=== PATIENT | female | born 1975 | race Caucasian/White ===

== ENCOUNTER 2017-07-30 14:09 | Emergency (ER) | payer MEDICAID, OTHER ==
[~2017-07-30] VITALS: Ht 167.6 cm; Wt 118.9 kg
[~2017-07-30 14:09] MED LIST: ALBU8.5H3 IH; CLON0.5T PO; CYCL-309 PO; HYDR-4031 PO; INSU100C4 SQ; INSU100C6 SQ; LAMO25TA66 PO; LISI10TA7 PO; LITH300C3 PO; LITH300CRT PO; LURA40 PO; OMEP20 PO; PHENY100 PO; PREM625 PO; PROM25 PO; RISP0.5T61 PO; SITA100 PO
[2017-07-30 14:28] LABS: GLUCOSE,POINT OF CARE 191 MG/DL (70-110)
[2017-07-30] MEDS ORDERED: IBUP-2070 PO (14:30)
[2017-07-30] MEDS ORDERED: PRAZ1 PO (14:30)
[2017-07-30] MEDS ORDERED: ZONI100 PO (14:30)
[2017-07-30] MEDS ORDERED: VENL-68 PO (14:30)
[2017-07-30] MEDS ORDERED: VIST50 PO (14:30)
[2017-07-30] MEDS ORDERED: TRAM50TA4 PO (14:30)
[2017-07-30] MEDS ORDERED: TRAZ-147 PO (14:30)
[2017-07-30] MEDS ORDERED: RISP2 PO (15:14)
[2017-07-30] MEDS ORDERED: LORazepam 1 MG TABLET PO ONE (15:15)
[2017-07-30 16:50] VITALS: BP 123/84
== END 2017-07-30 17:26 | disposition home or self-care (01) ==
LOC: EMS 14:11
DX: G40.909 Epilepsy, unspecified, not intractable, without status epilepticus (principal); E11.9 Type 2 diabetes mellitus without complications; I10 Essential (primary) hypertension; F31.9 Bipolar disorder, unspecified; K21.9 Gastro-esophageal reflux disease without esophagitis; E78.00 Pure hypercholesterolemia, unspecified; G43.909 Migraine, unspecified, not intractable, without status migrainosus; Z91.19 Patient's noncompliance with other medical treatment and regimen; Z88.5 Allergy status to narcotic agent; Z88.0 Allergy status to penicillin; Z79.4 Long term (current) use of insulin
CPT/HCPCS: 82962; 99285

== ENCOUNTER 2017-10-20 15:06 | Emergency (ER) | payer MEDICAID, OTHER ==
[~2017-10-20] VITALS: Ht 167.6 cm; Wt 114.1 kg
[~2017-10-20 15:06] MED LIST changes: -CLON0.5T PO; -HYDR-4031 PO; +HYDR50CA10 PO; +IBUP-2070 PO; -LAMO25TA66 PO; -LISI10TA7 PO; -LITH300C3 PO; -LITH300CRT PO; -LURA40 PO; -PHENY100 PO; +PRAZ1 PO; -PREM625 PO; -PROM25 PO; -RISP0.5T61 PO; +RISP2 PO; -SITA100 PO; +TRAM50TA4 PO; +TRAZ-147 PO; +VENL-68 PO; +ZONI100 PO
[2017-10-20 15:42] LABS: GLUCOSE,POINT OF CARE 134 MG/DL (70-110)
[2017-10-20] MEDS ORDERED: ESCI20TA PO (16:37)
[2017-10-20] MEDS ORDERED: QUET100T PO (16:37)
[2017-10-20 16:46] VITALS: BP 121/76
== END 2017-10-20 17:21 | disposition home or self-care (01) ==
LOC: EMS 15:08
DX: Z76.0 Encounter for issue of repeat prescription (principal); E11.9 Type 2 diabetes mellitus without complications; K21.9 Gastro-esophageal reflux disease without esophagitis; E78.00 Pure hypercholesterolemia, unspecified; I10 Essential (primary) hypertension; G43.909 Migraine, unspecified, not intractable, without status migrainosus; Z88.0 Allergy status to penicillin; Z88.5 Allergy status to narcotic agent; Z79.4 Long term (current) use of insulin
CPT/HCPCS: 99283

== ENCOUNTER 2017-12-19 06:22 | Emergency (ER) | payer OTHER ==
[~2017-12-19] VITALS: Ht 167.6 cm; Wt 111.8 kg
[~2017-12-19 06:22] MED LIST changes: +ESCI20TA PO; -HYDR50CA10 PO; +QUET100T PO; -RISP2 PO; -TRAM50TA4 PO; -TRAZ-147 PO; -VENL-68 PO
[2017-12-19 06:38] LABS: GLUCOSE,POINT OF CARE 193 MG/DL (70-110)
[2017-12-19 07:03] LABS: BASOPHILS % (AUTO) 0.8 % (0.0-2.0); EOSINOPHILS % (AUTO) 1.8 % (1.0-6.0); HEMATOCRIT 40.3 % (36-46); HEMOGLOBIN 13.7 g/dL (12.0-16.0); LYMPHOCYTES # (AUTO) 2.9 K/uL (1.0-4.8); LYMPHOCYTES % (AUTO) 36.6 % (22.0-44.0); MEAN CORPUSCULAR HEMOGLOBIN 28.7 pg (26.0-34.0); MEAN CORPUSCULAR VOLUME 84 fL (80-100); MONOCYTES # (AUTO) 0.4 K/uL (0.1-1.0); MONOCYTES % (AUTO) 5.3 % (2.0-9.0); NEUTROPHILS # (AUTO) 4.4 K/uL (1.8-7.7); NEUTROPHILS % (AUTO) 55.5 % (40.0-70.0); PLATELET COUNT (AUTO) 340 K/uL (150-450); RED BLOOD CELL COUNT(AUTO) 4.78 MIL/uL (4.00-5.20); RED CELL DISTRIBUTION WIDTH 14.7 % (11.5-14.5)
[2017-12-19 07:12] LABS: ANION GAP 11 mmol/L (8-16); CALCIUM, TOTAL 8.9 mg/dL (8.8-10.5); CARBON DIOXIDE 22 mmol/L (22-29); CHLORIDE 103 mmol/L (98-107); CREATININE 0.92 mg/dL (0.60-1.30); GLOMERULAR FILTR. RATE CALC > 60 mL/min (>60); GLUCOSE,RANDOM 178 mg/dL (70-110); POTASSIUM 3.6 mmol/L (3.5-5.1); SODIUM SERUM 136 mmol/L (136-145); UREA NITROGEN, BLOOD 12 mg/dL (7-18)
[2017-12-19 07:18] LABS: ALANINE AMINOTRANSFERASE 20 U/L (12-78); ALBUMIN 3.7 g/dL (3.4-5.0); ALKALINE PHOSPHATASE 107 U/L (46-116); ASPARTATE AMINOTRANSFERASE 11 U/L (15-37); BILIRUBIN,TOTAL 0.4 mg/dL (0.1-1.0); TOTAL PROTEIN, SERUM 7.6 g/dL (6.4-8.2)
[2017-12-19 09:27] VITALS: BP 120/83
== END 2017-12-19 10:12 | disposition home or self-care (01) ==
LOC: EMS 06:23
DX: G47.00 Insomnia, unspecified (principal); F51.5 Nightmare disorder; F31.9 Bipolar disorder, unspecified; E11.9 Type 2 diabetes mellitus without complications; K21.9 Gastro-esophageal reflux disease without esophagitis; E78.00 Pure hypercholesterolemia, unspecified; I10 Essential (primary) hypertension; G43.909 Migraine, unspecified, not intractable, without status migrainosus; Z88.0 Allergy status to penicillin; Z88.5 Allergy status to narcotic agent; Z79.4 Long term (current) use of insulin
CPT/HCPCS: 36415; 80053; 82962; 85025; 99284; G0480

== ENCOUNTER 2017-12-22 20:47 | Emergency (ER) | payer OTHER ==
[~2017-12-22] VITALS: Ht 167.6 cm; Wt 112.0 kg
[2017-12-22 20:58] LABS: GLUCOSE,POINT OF CARE 172 MG/DL (70-110)
[2017-12-22] MEDS ORDERED: OMEP20 PO (20:58)
[2017-12-22] MEDS ORDERED: ZONI100 PO (20:58)
[2017-12-22] MEDS ORDERED: QUET100T PO (20:58)
[2017-12-22] MEDS ORDERED: IBUP-2071 PO (20:58)
[2017-12-22] MEDS ORDERED: INSREG SQ (20:58)
[2017-12-22] MEDS ORDERED: BACL20TA PO (20:59)
[2017-12-22 22:15] LABS: BASOPHILS % (AUTO) 0.8 % (0.0-2.0); HEMATOCRIT 38.5 % (36-46); HEMOGLOBIN 12.9 g/dL (12.0-16.0); MEAN CORPUSCULAR HEMOGLOBIN 28.2 pg (26.0-34.0); MEAN CORPUSCULAR HGB CONC 33.4 G/dL (31.0-37.0); MEAN CORPUSCULAR VOLUME 84 fL (80-100); MONOCYTES # (AUTO) 0.7 K/uL (0.1-1.0); MONOCYTES % (AUTO) 5.4 % (2.0-9.0); NEUTROPHILS # (AUTO) 6.2 K/uL (1.8-7.7); NEUTROPHILS % (AUTO) 50.8 % (40.0-70.0); PLATELET COUNT (AUTO) 320 K/uL (150-450); RED BLOOD CELL COUNT(AUTO) 4.56 MIL/uL (4.00-5.20); RED CELL DISTRIBUTION WIDTH 14.5 % (11.5-14.5)
[2017-12-22 22:28] LABS: ANION GAP 13 mmol/L (8-16); CARBON DIOXIDE 22 mmol/L (22-29); CHLORIDE 103 mmol/L (98-107); CREATININE 0.97 mg/dL (0.60-1.30); GLOMERULAR FILTR. RATE CALC > 60 mL/min (>60); GLUCOSE,RANDOM 177 mg/dL (70-110); SODIUM SERUM 138 mmol/L (136-145); UREA NITROGEN, BLOOD 12 mg/dL (7-18)
[2017-12-22 22:34] LABS: ALANINE AMINOTRANSFERASE 19 U/L (12-78); ALBUMIN 3.4 g/dL (3.4-5.0); ALKALINE PHOSPHATASE 108 U/L (46-116); ASPARTATE AMINOTRANSFERASE 11 U/L (15-37); BILIRUBIN,TOTAL 0.2 mg/dL (0.1-1.0); TOTAL PROTEIN, SERUM 7.1 g/dL (6.4-8.2)
[2017-12-23] MEDS ORDERED: QUEtiapine FUMARATE 100 MG TABLET PO ONE (02:00)
[2017-12-23] MEDS ORDERED: POTASSIUM CHLORIDE 10% 40 MEQ/30 ML LIQUID UDCUP PO ONE (02:00)
[2017-12-23 02:21] VITALS: BP 118/68
== END 2017-12-23 02:49 | disposition home or self-care (01) ==
LOC: EMS 20:48
DX: F25.9 Schizoaffective disorder, unspecified (principal); R45.851 Suicidal ideations; E11.65 Type 2 diabetes mellitus with hyperglycemia; F31.9 Bipolar disorder, unspecified; F41.9 Anxiety disorder, unspecified; E11.9 Type 2 diabetes mellitus without complications; I10 Essential (primary) hypertension; E78.00 Pure hypercholesterolemia, unspecified; K21.9 Gastro-esophageal reflux disease without esophagitis; Z88.0 Allergy status to penicillin; Z88.5 Allergy status to narcotic agent; Z88.8 Allergy status to other drugs, medicaments and biological substances; Z79.4 Long term (current) use of insulin; Z79.84 Long term (current) use of oral hypoglycemic drugs
CPT/HCPCS: 36415; 80053; 82962; 84703; 85025; 99284; G0480